=== PATIENT | male | born 1970 | race American Indian/Alaskan Native ===

== ENCOUNTER 2018-01-18 09:59 | Emergency (ER) | payer SELFPAY ==
[2018-01-18] MEDS ORDERED: XYLOCAINE 1% 20 mL INFILTRATI ONE (15:22)
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
[2018-01-18] MEDS ORDERED: BOOSTRIX IM ONE (16:13)
[2018-01-18 16:36] VITALS: BP 109/74
== END 2018-01-18 16:35 | disposition home or self-care (01) ==
LOC: ED 09:59
DX: S01.312A Laceration without foreign body of left ear, initial encounter (principal); F17.200 Nicotine dependence, unspecified, uncomplicated; V49.9XXA Car occupant (driver) (passenger) injured in unspecified traffic accident, initial encounter; Y93.89 Activity, other specified; Y99.8 Other external cause status; Y92.410 Unspecified street and highway as the place of occurrence of the external cause
CPT/HCPCS: 90471; 90715